=== PATIENT | female | born 1950 | race American Indian/Alaskan Native ===

== ENCOUNTER 2016-08-14 20:27 | Inpatient (IN) | payer MEDICARE ==
--- NOTE | 2016-08-14 21:11 | Emergency Department Report ---
ED General Adult HPI - General Chief complaint: High BP Stated complaint: HIGH BP Time Seen by Provider: 08/14/16 20:47 Source: patient, family, EMS Mode of arrival: Stretcher Limitations: Physical Limitation - History of Present Illness Initial comments: 66-year-old female presents to the emergency department via EMS for evaluation of multiple complaints. Patient has had a recent stroke and additional history is obtained from family at bedside. Per report, over the past 2 nights the patient has had left-sided neck pain and intermittent difficulty breathing. Family also reports the patient seems confused at times and appears to be seeing things that are not there. Patient was recently at an inpatient rehabilitation facility where she was able to walk with some assistance and feed herself. Since arriving home, family states the patient has been unable to do these things. There are no other complaints. -: Gradual, days(s) (2) Location: neck Radiation: non-radiation Severity scale (0 -10): 9 Quality: sharp Consistency: intermittent Improves with: none Worsens with: none Associated Symptoms: shortness of breath Treatments Prior to Arrival: none - Related Data Home Medications Medication Instructions Recorded Confirmed Last Taken Albuterol Sulfate [Ventolin HFA] 2 puff IH Q4H PRN 08/10/15 08/10/15 Unknown Atenolol/Chlorthalidone [Tenoretic 1 tab PO QDAY 08/10/15 08/10/15 Unknown 50-25] B Cmplx 4/Vit D3/C/FA/Zinc Ox 1 each PO DAILY 08/10/15 08/10/15 Unknown [Vital-D Rx Tablet] Carisoprodol [Soma] 350 mg PO HS 08/10/15 08/10/15 Unknown Cyanocobalamin/Folic Acid [B-12 1 mcg PO DAILY 08/10/15 08/10/15 Unknown 1,000 Mcg Sub Tablet] Ezetimibe [Zetia] 10 mg PO QDAY 08/10/15 08/10/15 Unknown Hydroxyzine HCl 25 mg PO DAILY 08/10/15 08/10/15 Unknown Ibuprofen [Motrin] 800 mg PO Q8HR PRN 08/10/15 08/10/15 Unknown Losartan [Cozaar] 50 mg PO QDAY 08/10/15 08/10/15 Unknown Myrbetriq 25 mg PO QHS 08/10/15 08/10/15 Unknown Potassium Chloride [Klor-Con] 20 meq PO DAILY 08/10/15 08/10/15 Unknown Ranitidine HCl [Zantac 150 MG TAB] 150 mg PO PRN 08/10/15 08/10/15 Unknown traMADol [Ultram] 50 mg PO Q4HR PRN 08/10/15 08/10/15 Unknown Allergies Allergy/AdvReac Type Severity Reaction Status Date / Time hydrocodone AdvReac Headache Verified 02/28/16 15:48 ED Review of Systems ROS: Stated complaint: HIGH BP Other details as noted in HPI Comment: All other systems reviewed and negative Respiratory: shortness of breath Musculoskeletal: as per HPI (neck pain) Psychiatric: visual hallucinations ED Past Medical Hx - Past Medical History Previous Medical History?: Yes Hx Hypertension: Yes (1993) Hx CVA: Yes Hx GERD: Yes Hx Arthritis: Yes - Surgical History Past Surgical History?: No - Family History Family history: no significant - Social History Smoking Status: Never Smoker Substance Use Type: None - Medications Home Medications: Home Medications Medication Instructions Recorded Confirmed Last Taken Type Albuterol Sulfate [Ventolin HFA] 2 puff IH Q4H PRN 08/10/15 08/10/15 Unknown History Atenolol/Chlorthalidone [Tenoretic 1 tab PO QDAY 08/10/15 08/10/15 Unknown History 50-25] B Cmplx 4/Vit D3/C/FA/Zinc Ox 1 each PO DAILY 08/10/15 08/10/15 Unknown History [Vital-D Rx Tablet] Carisoprodol [Soma] 350 mg PO HS 08/10/15 08/10/15 Unknown History Cyanocobalamin/Folic Acid [B-12 1 mcg PO DAILY 08/10/15 08/10/15 Unknown History 1,000 Mcg Sub Tablet] Ezetimibe [Zetia] 10 mg PO QDAY 08/10/15 08/10/15 Unknown History Hydroxyzine HCl 25 mg PO DAILY 08/10/15 08/10/15 Unknown History Ibuprofen [Motrin] 800 mg PO Q8HR PRN 08/10/15 08/10/15 Unknown History Losartan [Cozaar] 50 mg PO QDAY 08/10/15 08/10/15 Unknown History Myrbetriq 25 mg PO QHS 08/10/15 08/10/15 Unknown History Potassium Chloride [Klor-Con] 20 meq PO DAILY 08/10/15 08/10/15 Unknown History Ranitidine HCl [Zantac 150 MG TAB] 150 mg PO PRN 08/10/15 08/10/15 Unknown History traMADol [Ultram] 50 mg PO Q4HR PRN 08/10/15 08/10/15 Unknown History ED Physical Exam - General Limitations: Physical Limitation General appearance: alert, in no apparent distress - Head Head exam: Present: atraumatic, normocephalic - Eye Eye exam: Present: normal appearance, PERRL, EOMI - ENT ENT exam: Present: normal exam, normal orophraynx, mucous membranes moist - Neck Neck exam: Present: normal inspection, full ROM. Absent: tenderness - Respiratory Respiratory exam: Present: normal lung sounds bilaterally. Absent: respiratory distress - Cardiovascular Cardiovascular Exam: Present: regular rate, normal rhythm, normal heart sounds - GI/Abdominal GI/Abdominal exam: Present: soft, normal bowel sounds. Absent: distended, tenderness - Extremities Exam Extremities exam: Present: normal inspection, full ROM. Absent: tenderness - Neurological Exam Neurological exam: Present: alert, oriented X3, motor sensory deficit (left- sided hemiparesis) - Skin Skin exam: Present: warm, dry, intact ED Course Vital Signs 08/14/16 08/14/16 08/14/16 20:47 20:57 21:09 Temperature 98.8 F 98.8 F Pulse Rate 87 88 Respiratory 22 22 22 Rate Blood Pressure 188/104 Blood Pressure 188/104 [Right] O2 Sat by Pulse 97 97 97 Oximetry ED Medical Decision Making - Lab Data Result diagrams: 08/14/16 21:27 08/14/16 21:27 - Radiology Data Radiology results: image reviewed interpreted by me: Chest x-ray shows no acute abnormality. - Medical Decision Making Lab and imaging results reviewed and discussed with the patient. Potassium is being replaced orally. Patient's blood pressure is continue to be high in the emergency department. Giving IV labetalol. Patient is to be admitted by the hospitalist. - Differential Diagnosis UTI, electrolyte abnormality, muscle spasms Critical care attestation.: If time is entered above; I have spent that time in minutes in the direct care of this critically ill patient, excluding procedure time. ED Disposition Clinical Impression: Left-sided weakness Hypertension Qualifiers: Hypertension type: essential hypertension Qualified Code(s): I10 - Essential ( primary) hypertension Disposition: OP ADMITTED IP TO THIS HOSP Is pt being admited?: Yes Condition: Stable Instructions: Hypertension (ED) Time of Disposition: 23:48
[2016-08-14 21:44] LABS: Basophils % (Auto) 0.6 % (0.0-1.8); Eosinophils % (Auto) 3.5 % (0.0-4.3); Hematocrit 37.9 % (30.3-42.9); Hemoglobin 12.3 gm/dl (10.1-14.3); Mean Corpuscular HGB Conc 32 % (30-34); Mean Corpuscular Hemoglobin 29 pg (28-32); Mean Corpuscular Volume 90 fl (79-97); Platelet Count 332 K/mm3 (140-440); Red Cell Distribution Width 14.3 % (13.2-15.2); White Blood Count 9.6 K/mm3 (4.5-11.0)
[2016-08-14 22:11] LABS: Alanine Aminotransferase 12 units/L (7-56); Albumin 3.6 g/dL (3.9-5); Alkaline Phosphatase 113 units/L (35-129); BUN/Creatinine Ratio 21.66; Bilirubin,Total 0.2 mg/dL (0.1-1.2); Blood Urea Nitrogen 13 mg/dL (7-17); Calcium 9.6 mg/dL (8.4-10.2); Carbon Dioxide 24 mmol/L (22-30); Chloride 103.4 mmol/L (98-107); Glucose 96 mg/dL (65-100); Sodium 144 mmol/L (137-145); Total Protein 7.2 g/dL (6.3-8.2)
[2016-08-14 22:12] LABS: Anion Gap 20 mmol/L; Creatine Kinase 40 units/L (30-135)
[2016-08-14 22:14] LABS: Potassium 2.9 mmol/L (3.6-5.0)
[2016-08-14 23:17] LABS: Bacteria,Urine 1+ /HPF (Negative); Bilirubin,Urine NEG (Negative); Blood,Urine NEG (Negative); Ketones,Urine NEG (Negative); Leukocyte Esterase,Urine NEG (Negative); Mucus,Urine 3+ /HPF; Nitrite,Urine NEG (Negative); Protein,Urine <15 mg/dL mg/dL (Negative); Urobilinogen,Urine < 2.0 mg/dL (<2.0)
[2016-08-14] MEDS ORDERED: K-DUR PO ONE (23:35)
[2016-08-14] MEDS ORDERED: NORMODYNE IV ONE (23:40)
--- NOTE | 2016-08-15 01:48 | Admit Criteria Form ---
Admission Criteria Documentation: HYPERTENSION Clinical Indications for Admission to Inpatient Care ( Place "X" for any and all applicable criteria): Admission is indicated for ANY ONE of the following(1)(2)(3)(4): [ ]I. Hypertensive emergency, with evidence of acute and progressing target organ disease as indicated by ANY ONE of the following: [ ]a) Hypertensive encephalopathy (eg, confusion, altered mental status) [ ]b) Cerebral infarction [ ]c) Intracranial hemorrhage [ ]d) Myocardial ischemia or infarction [ ]e) Pulmonary edema [ ]f) Aortic dissection [ ]g) Seizure [ ]h) Acute renal insufficiency [ ]i) Papilledema [ ]j) Microangiopathic hemolytic anemia [ ]II. Adrenergic crisis (eg, severe hypertension due to pheochromocytoma crisis, cocaine or amphetamine intoxication, or clonidine withdrawal) [X ]III. Severe hypertension (SBP greater than 180 mmHg or DBP greater than 110 mmHg or greater than the 95th percentile for age, gender, and height in pediatric patients) that cannot be controlled (eg, to SBP less than 160 mmHg and DBP less than 100 mmHg in adults) by treatment with oral medication in emergency department or observation care Extended stay beyond goal length of stay may be needed for(11)(12)(13): [ ]a) Persistent hypertensive encephalopathy [ ]b) Continuation of pulmonary edema [ ]c) Recurring or persistent severe hypertension [ ]d) Target organ damage (eg, angina, stroke, aortic dissection) [ ]e) Associated renal insufficiency The original [employer] content created by [employer] has been revised. The portions of the content which have been revised are identified through the use of italic text or in bold, and [facility] has neither reviewed nor approved the modified material. All other unmodified content is copyright [employer]. Please see references footnoted in the original [employer] edition 2016 Admission Criteria Met: Yes
--- NOTE | 2016-08-15 04:01 | History and Physical Report ---
History of Present Illness Date of examination: 08/15/16 History of present illness: This 66-year-old woman with a history of hypertension, GERD, recent CVA with left hemiparesis who was discharged from rehabilitation 2-3 weeks ago was brought to the emergency room by family because of slurred speech and he also stated that she is hallucinating. The patient is unable to do her ADLs at home since discharge from the [facility] Patient denies chest pain, palpitation, shortness of breath, cough, abdominal pain, hematochezia, dysuria, frequency, fever chills, polydipsia polyuria, hot or cold intolerance, easy bruisability, or rash or bleeding from mucosal membrane, rhinorrhea, epistaxis, earache, tinnitus, blurry vision, eye discharge , anxiety, depression. Other review of systems negative PAST SURGICAL HISTORY: None SOCIAL HISTORY: Denies alcohol, tobacco, drugs FAMILY HISTORY: Hypertension Medications and Allergies Allergies Allergy/AdvReac Type Severity Reaction Status Date / Time hydrocodone AdvReac Headache Verified 02/28/16 15:48 Home Medications Medication Instructions Recorded Confirmed Last Taken Type Albuterol Sulfate [Ventolin HFA] 2 puff IH Q4H PRN 08/10/15 08/10/15 Unknown History B Cmplx 4/Vit D3/C/FA/Zinc Ox 1 each PO DAILY 08/10/15 08/10/15 Unknown History [Vital-D Rx Tablet] Cyanocobalamin/Folic Acid [B-12 1 mcg PO DAILY 08/10/15 08/10/15 Unknown History 1,000 Mcg Sub Tablet] Hydroxyzine HCl 25 mg PO DAILY 08/10/15 08/10/15 Unknown History Ibuprofen [Motrin 800 MG tab] 800 mg PO Q8HR PRN 08/10/15 08/10/15 Unknown History Losartan [Cozaar] 50 mg PO QDAY 08/10/15 08/10/15 Unknown History Myrbetriq 25 mg PO QHS 08/10/15 08/10/15 Unknown History Potassium Chloride [Klor-Con] 20 meq PO DAILY 08/10/15 08/10/15 Unknown History Ranitidine HCl [Zantac 150 MG TAB] 150 mg PO PRN 08/10/15 08/10/15 Unknown History traMADol [Ultram 50 MG tab] 50 mg PO Q4HR PRN 08/10/15 08/10/15 Unknown History Active Meds: Active Medications Atenolol (Tenormin) 50 mg PO QDAY [facility] Carisoprodol (Soma) 350 mg PO HS [facility] Chlorthalidone (Thalitone) 25 mg PO QDAY [facility] Cyanocobalamin (Vitamin B-12) 1,000 mcg PO QDAY [facility] Ezetimibe (Zetia) 10 mg PO QDAY [facility] Famotidine (Pepcid) 20 mg PO BID PRN PRN Reason: Dyspepsia Folic Acid (Folvite) 1 mg PO DAILY [facility] Losartan Potassium (Cozaar) 50 mg PO QDAY [facility] Exam - Physical Exam Narrative exam: Gen. appearance: Patient lying in bed, no apparent distress HEENT: Normocephalic, atraumatic, pupils equally round and reactive to light, extraocular movement intact, and no sclericterus,. No JVD or thyromegaly or nodule,neck supple, no carotid bruit ,mucous membranes moist, no exudate or erythema Heart: S1, S2, regular rate and rhythm Lungs: Clear to auscultation bilaterally, breathing comfortable Abdomen: Positive bowel sounds, nontender, nondistended, no organomegaly Extremity: No edema, cyanosis, clubbing Skin: No rash, nodules, warm, dry Neuro: Oriented 3, cranial nerves II-12 intact, speech is fluent, left hemiparesis - Constitutional Vitals: Temp Pulse Resp BP Pulse Ox 98.8 F 92 H 11 L 192/102 96 08/14/16 20:57 08/15/16 00:47 08/15/16 02:00 08/15/16 02:00 08/15/16 02:00 Results - Labs CBC & Chem 7: 08/14/16 21:27 08/14/16 21:27 Labs: Abnormal lab results 08/14/16 08/14/16 Range/Units 21:27 21:27 [place] % (Auto) 9.6 H (0.0-7.3) % [place] # 0.9 H (0.0-0.8) K/mm3 Potassium 2.9 L* (3.6-5.0) mmol/L Creatinine 0.6 L (0.7-1.2) mg/dL Albumin 3.6 L (3.9-5) g/dL - Imaging and Cardiology EKG: image reviewed Chest x-ray: image reviewed Assessment and Plan TIA Failure to thrive Hypertension GERD Admits medicine Obtain CT head, MRI head Will not repeat carotid, echo, these were done recently Start aspirin, statin, continue outpatient medications, start DVT prophylaxis IV hydralazine as needed for blood pressure control Consult physical, occupational therapy, do neuro check, swallow screen
--- NOTE | 2016-08-15 05:15 | Cat Scan Report ---
FINAL REPORT EXAM: CT HEAD/BRAIN WO CON HISTORY: slurred speech TECHNIQUE: Standard unenhanced CT of the head at 5.0 millimeter axial increments PRIORS: None. FINDINGS: The ventricular system is normal in size and configuration. There is moderate cerebral and cerebellar atrophy. Extensive remote lacunar infarct formation is present in both basal ganglia, the right caudate nucleus, and both thalami. Low-density small vessel ischemic changes in the periventricular white matter are also noted bilaterally. There is no evidence for mass lesion, mass effect, midline shift, acute intracranial hemorrhage, or acute ischemia/ infarction. Visualized paranasal sinuses are clear. IMPRESSION: Negative CT of the head. No acute intracranial process noted. Small vessel ischemic changes with remote lacunar infarcts and atrophy noted.
[2016-08-15 08:32] LABS: Creatine Kinase 34 units/L (30-135)
[2016-08-15] MEDS ORDERED: ZOFRAN IV PRN (09:00)
[2016-08-15] MEDS ORDERED: SODIUM CHLORIDE FLUSH SYRINGE 10 ML IV PRN (09:00)
[2016-08-15] MEDS ORDERED: MILK OF MAGNESIA PO PRN (09:00)
--- NOTE | 2016-08-15 09:37 | XRay Report ---
Single view chest: History altered mental status. Findings: Normal cardiomediastinal silhouette. Trachea is midline. No consolidation, pneumothorax or pleural effusion. Impression: No acute cardiopulmonary findings.
[2016-08-15] MEDS: VITAMIN B-12 PO SCH (09:54)
[2016-08-15] MEDS: ZETIA PO SCH (09:54)
[2016-08-15] MEDS: ASPIRIN PO SCH (09:54)
[2016-08-15] MEDS: THALITONE PO SCH (09:54)
[2016-08-15] MEDS: COZAAR PO SCH (09:54)
[2016-08-15] MEDS: LOVENOX SUB-Q SCH (09:54)
[2016-08-15] MEDS: TENORMIN PO SCH (09:54)
[2016-08-15] MEDS: FOLVITE PO SCH (09:54)
[2016-08-15] MEDS ORDERED: PEPCID PO PRN (10:00)
[2016-08-15] MEDS ORDERED: FOLIC ACID PO SCH (10:00)
[2016-08-15] MEDS ORDERED: DULCOLAX PR PRN (10:00)
[2016-08-15] MEDS ORDERED: CYANOCOBALAMIN PO SCH (10:00)
--- NOTE | 2016-08-15 12:13 | Magnetic Resonance Report ---
MRI OF THE BRAIN WITHOUT CONTRAST: HISTORY: CVA PROCEDURE: Multiplanar, multisequence MR imaging of the brain without IV contrast was performed. FINDINGS: Moderate diffuse volume loss and chronic white matter changes are identified. 1.8 cm chronic infarct in the right lateral thalamus is noted. 1.4 cm chronic infarct in the right montano radiata is noted. No large chronic infarct. No evidence for acute ischemia, hemorrhage or mass. No extra-axial fluid collection. The midline structures are central. The basal cisterns are patent. Normal ventricular size. The orbital cavities and sella turcica demonstrate no abnormality. The visualized paranasal sinuses and mastoid air cells are well aerated. IMPRESSION: No acute intracranial process. Volume loss. Chronic white matter changes. Chronic focal infarcts in the right basal ganglia and right montano radiata.
[2016-08-15 14:14] LABS: Creatine Kinase 33 units/L (30-135)
[2016-08-15 14:18] LABS: Creatine Kinase MB < 1.0 ng/mL (0.0-4.0)
[2016-08-15] MEDS: SOMA PO SCH (22:17)
[2016-08-15] MEDS: ZOCOR PO SCH (22:17)
[2016-08-16] MEDS ORDERED: PNEUMOVAX 23 IM ONE (12:00)
--- NOTE | 2016-08-16 16:10 | Progress Note ---
Assessment and Plan - Patient Problems (1) CVA (cerebral vascular accident) Current Visit: Yes Status: Chronic Qualifiers: CVA mechanism: C Precerebral and cerebral artery: P Laterality of affected vessel: right Plan to address problem: Stroke protocol, antiplatelet therapy, supportive care. case management consulted for d/c planning /placement (2) Left hemiparesis Current Visit: Yes Status: Acute (3) Hypertension Current Visit: Yes Status: Acute Qualifiers: Hypertension type: essential hypertension Qualified Code(s): I10 - Essential (primary) hypertension Plan to address problem: monitor bp q shift, continue current therapy (4) Debility Current Visit: Yes Status: Acute Plan to address problem: PT consulted, (5) DVT prophylaxis Current Visit: Yes Status: Acute History Interval history: Pt resting in bed, No reported nursing events. Pt denies pain Hospitalist Physical - Constitutional Vitals: Temp Pulse Resp BP Pulse Ox 98.4 F 73 19 186/85 96 08/16/16 03:51 08/16/16 03:51 08/16/16 03:51 08/16/16 03:51 08/16/16 03:51 General appearance: Present: no acute distress - EENT Eyes: Present: PERRL ENT: hearing intact - Neck Neck: Present: supple - Respiratory Respiratory effort: normal Respiratory: bilateral: CTA - Cardiovascular Rhythm: regular Heart Sounds: Present: S1 & S2 - Extremities Extremities: no ischemia - Abdominal General gastrointestinal: soft, non-tender, non-distended - Integumentary Integumentary: Present: clear, dry - Psychiatric Psychiatric: appropriate mood/affect, cooperative - Neurologic Neurologic: no CNII-XII intact, focal deficits, no moves all extremities, no gait normal Results - Labs CBC & Chem 7: 08/14/16 21:27 08/14/16 21:27 Labs: Laboratory Last Values WBC 9.6 K/mm3 (4.5-11.0) 08/14/16 21:27 RBC 4.20 M/mm3 (3.65-5.03) 08/14/16 21:27 Hgb 12.3 gm/dl (10.1-14.3) 08/14/16 21:27 Hct 37.9 % (30.3-42.9) 08/14/16 21:27 MCV 90 fl (79-97) 08/14/16 21:27 MCH 29 pg (28-32) 08/14/16 21:27 MCHC 32 % (30-34) 08/14/16 21:27 RDW 14.3 % (13.2-15.2) 08/14/16 21:27 Plt Count 332 K/mm3 (140-440) 08/14/16 21:27 Lymph % (Auto) 25.5 % (13.4-35.0) 08/14/16 21:27 [place] % (Auto) 9.6 % (0.0-7.3) H 08/14/16 21:27 Eos % (Auto) 3.5 % (0.0-4.3) 08/14/16: Baso % (Auto) 0.6 % (0.0-1.8) 08/14/16 21: Lymph # 2.4 K/mm3 (1.2-5.4) 08/14/16 21: [place] # 0.9 K/mm3 (0.0-0.8) H 08/14/16 21: Eos # 0.3 K/mm3 (0.0-0.4) 08/14/16 21: Baso # 0.1 K/mm3 (0.0-0.1) 08/14/16 21: Seg Neutrophils % 60.8 % (40.0-70.0) 08/14/16 21: Seg Neutrophils # 5.8 K/mm3 (1.8-7.7) 08/14/16 21:27 Sodium 144 mmol/L (137-145) 08/14/16 21:27 Potassium 2.9 mmol/L (3.6-5.0) L* 08/14/16 21: Chloride 103.4 mmol/L (98-107) 08/14/16 21: Carbon Dioxide 24 mmol/L (22-30) 08/14/16 21: Anion Gap 20 mmol/L 08/14/16 21:27 BUN 13 mg/dL (7-17) 08/14/16 21:27 Creatinine 0.6 mg/dL (0.7-1.2) L 08/14/16 21:27 Estimated GFR > 60 ml/min 08/14/16 21:27 BUN/Creatinine Ratio 21.66 % 08/14/16 21:27 Glucose 96 mg/dL (65-100) 08/14/16 21:27 Lactic Acid 1.0 mmol/L (0.7-2.0) 08/14/16 21:27 Calcium 9.6 mg/dL (8.4-10.2) 08/14/16 21:27 Total Bilirubin 0.2 mg/dL (0.1-1.2) 08/14/16 21:27 AST 15 units/L (5-40) 08/14/16 21:27 ALT 12 units/L (7-56) 08/14/16 21:27 Alkaline Phosphatase 113 units/L (35-129) 08/14/16 21:27 Total Creatine Kinase 33 units/L (30-135) 08/15/16 13:27 CK-MB (CK-2) < 1.0 ng/mL (0.0-4.0) 08/15/16 13:27 CK-MB (CK-2) Rel Index 3.0 (0-4) 08/15/16 13:27 Troponin T < 0.010 ng/mL (0.00-0.029) 08/15/16 13:27 Total Protein 7.2 g/dL (6.3-8.2) 08/14/16 21:27 Albumin 3.6 g/dL (3.9-5) L 08/14/16 21: Albumin/Globulin Ratio 1.0 % 08/14/16 21:27 Triglycerides 73 mg/dL (2-149) 08/16/16 04:00 Cholesterol 212 mg/dL (50-199) H 08/16/16 04:00 LDL Cholesterol Direct 157 mg/dL (50-130) H 08/16/16 04:00 HDL Cholesterol 41 mg/dL (40-59) 08/16/16 04:00 Cholesterol/HDL Ratio 5.17 % 08/16/16 04:00 Urine Color Yellow (Yellow) 08/14/16 22:57 Urine Turbidity Cloudy (Clear) 08/14/16 22:57 Urine pH 6.0 (5.0-7.0) 08/14/16 22:57 Ur Specific [place] 1.016 (1.003-1.030) 08/14/16 22:57 Urine Protein <15 mg/dl mg/dL (Negative) 08/14/16 22:57 Urine Glucose (UA) Neg mg/dL (Negative) 08/14/16 22:57 Urine Ketones Neg mg/dL (Negative) 08/14/16 22:57 Urine Blood Neg (Negative) 08/14/16 22:57 Urine Nitrite Neg (Negative) 08/14/16 22:57 Urine Bilirubin Neg (Negative) 08/14/16 22:57 Urine Urobilinogen < 2.0 mg/dL (<2.0) 08/14/16 22:57 Ur Leukocyte Esterase Neg (Negative) 08/14/16 22:57 Urine WBC (Auto) 1.0 /HPF (0.0-6.0) 08/14/16 22:57 Urine RBC (Auto) 21.0 /HPF (0.0-6.0) 08/14/16 22:57 U Epithel Cells (Auto) 2.0 /HPF (0-13.0) 08/14/16 22:57 Urine Bacteria (Auto) 1+ /HPF (Negative) 08/14/16 22:57 Urine Mucus 3+ /HPF 08/14/16 22:57
[2016-08-16] MEDS: SOMA PO SCH (22:03)
[2016-08-16] MEDS: APRESOLINE IV PRN (22:03)
[2016-08-16] MEDS: ZOCOR PO SCH (22:03)
[2016-08-16] MEDS: TYLENOL PO PRN (22:07)
[2016-08-17] MEDS: TYLENOL PO PRN ×2 (06:57→09:13)
[2016-08-17] MEDS: VITAMIN B-12 PO SCH ×2 (07:52→09:13)
[2016-08-17] MEDS: ASPIRIN PO SCH ×2 (07:52→09:13)
[2016-08-17] MEDS: FOLVITE PO SCH ×2 (07:52→09:12)
[2016-08-17] MEDS: THALITONE PO SCH ×2 (07:52→09:13)
[2016-08-17] MEDS: TENORMIN PO SCH ×2 (07:52→09:12)
[2016-08-17] MEDS: COZAAR PO SCH ×2 (07:52→09:13)
[2016-08-17] MEDS: LOVENOX SUB-Q SCH ×2 (07:52→09:12)
[2016-08-17] MEDS: ZETIA PO SCH ×2 (07:53→09:13)
[2016-08-17] MEDS: PLAVIX PO SCH (09:12)
[2016-08-17] MEDS: SOMA PO SCH (21:57)
[2016-08-17] MEDS: ZOCOR PO SCH (21:57)
--- NOTE | 2016-08-18 00:07 | Progress Note ---
Assessment and Plan - Patient Problems (1) CVA (cerebral vascular accident) Current Visit: Yes Status: Chronic Qualifiers: CVA mechanism: C Precerebral and cerebral artery: P Laterality of affected vessel: right Plan to address problem: Stroke protocol, antiplatelet therapy, supportive care. case management consulted for d/c planning /placement (2) Left hemiparesis Current Visit: Yes Status: Acute (3) Hypertension Current Visit: Yes Status: Acute Qualifiers: Hypertension type: essential hypertension Qualified Code(s): I10 - Essential (primary) hypertension Plan to address problem: monitor bp q shift, continue current therapy (4) Debility Current Visit: Yes Status: Acute Plan to address problem: PT consulted, (5) DVT prophylaxis Current Visit: Yes Status: Acute History Interval history: Pt resting in bed, No reported nursing events. Pt denies pain. Case management consulted for D/C planning. Hospitalist Physical - Constitutional Vitals: Temp Pulse Resp BP Pulse Ox 98.4 F 67 22 168/74 98 08/17/16 20:35 08/17/16 20:35 08/17/16 20:35 08/17/16 20:35 08/17/16 20:35 General appearance: Present: no acute distress - EENT Eyes: Present: PERRL, EOM intact - Neck Neck: Present: supple - Respiratory Respiratory: bilateral: diminished - Cardiovascular Rhythm: regular Heart Sounds: Present: S1 & S2 - Extremities Extremities: no ischemia Peripheral Pulses: within normal limits - Abdominal General gastrointestinal: soft, non-tender, non-distended - Integumentary Integumentary: Present: clear, dry - Neurologic Neurologic: focal deficits, no gait normal Results - Labs CBC & Chem 7: 08/14/16 21:27 08/14/16 21:27 Labs: Laboratory Last Values WBC 9.6 K/mm3 (4.5-11.0) 08/14/16 21:27 RBC 4.20 M/mm3 (3.65-5.03) 08/14/16 21:27 Hgb 12.3 gm/dl (10.1-14.3) 08/14/16 21:27 Hct 37.9 % (30.3-42.9) 08/14/16 21:27 MCV 90 fl (79-97) 08/14/16 21:27 MCH 29 pg (28-32) 08/14/16 21:27 MCHC 32 % (30-34) 08/14/16 21:27 RDW 14.3 % (13.2-15.2) 08/14/16 21:27 Plt Count 332 K/mm3 (140-440) 08/14/16 21:27 Lymph % (Auto) 25.5 % (13.4-35.0) 08/14/16 21:27 [place] % (Auto) 9.6 % (0.0-7.3) H 08/14/16 21:27 Eos % (Auto) 3.5 % (0.0-4.3) 08/14/16 21: Baso % (Auto) 0.6 % (0.0-1.8) 08/14/16 21: Lymph # 2.4 K/mm3 (1.2-5.4) 08/14/16 21: [place] # 0.9 K/mm3 (0.0-0.8) H 08/14/16 21: Eos # 0.3 K/mm3 (0.0-0.4) 08/14/16 21: Baso # 0.1 K/mm3 (0.0-0.1) 08/14/16 21: Seg Neutrophils % 60.8 % (40.0-70.0) 08/14/16 21: Seg Neutrophils # 5.8 K/mm3 (1.8-7.7) 08/14/16 21:27 Sodium 144 mmol/L (137-145) 08/14/16 21:27 Potassium 2.9 mmol/L (3.6-5.0) L* 08/14/16 21:27 Chloride 103.4 mmol/L (98-107) 08/14/16 21:27 Carbon Dioxide 24 mmol/L (22-30) 08/14/16 21:27 Anion Gap 20 mmol/L 08/14/16 21:27 BUN 13 mg/dL (7-17) 08/14/16 21:27 Creatinine 0.6 mg/dL (0.7-1.2) L 08/14/16 21:27 Estimated GFR > 60 ml/min 08/14/16 21:27 BUN/Creatinine Ratio 21.66 % 08/14/16 21:27 Glucose 96 mg/dL (65-100) 08/14/16 21:27 POC Glucose 114 (70-105) H 08/17/16 22:31 Lactic Acid 1.0 mmol/L (0.7-2.0) 08/14/16 21:27 Calcium 9.6 mg/dL (8.4-10.2) 08/14/16 21:27 Total Bilirubin 0.2 mg/dL (0.1-1.2) 08/14/16 21:27 AST 15 units/L (5-40) 08/14/16 21:27 ALT 12 units/L (7-56) 08/14/16 21:27 Alkaline Phosphatase 113 units/L (35-129) 08/14/16 21:27 Total Creatine Kinase 33 units/L (30-135) 08/15/16 13:27 CK-MB (CK-2) < 1.0 ng/mL (0.0-4.0) 08/15/16 13:27 CK-MB (CK-2) Rel Index 3.0 (0-4) 08/15/16 13:27 Troponin T < 0.010 ng/mL (0.00-0.029) 08/15/16 13:27 Total Protein 7.2 g/dL (6.3-8.2) 08/14/16 21:27 Albumin 3.6 g/dL (3.9-5) L 08/14/16 21:27 Albumin/Globulin Ratio 1.0 % 08/14/16 21:27 Triglycerides 73 mg/dL (2-149) 08/16/16 04:00 Cholesterol 212 mg/dL (50-199) H 08/16/16 04:00 LDL Cholesterol Direct 157 mg/dL (50-130) H 08/16/16 04:00 HDL Cholesterol 41 mg/dL (40-59) 08/16/16 04:00 Cholesterol/HDL Ratio 5.17 % 08/16/16 04:00 Urine Color Yellow (Yellow) 08/14/16 22:57 Urine Turbidity Cloudy (Clear) 08/14/16 22:57 Urine pH 6.0 (5.0-7.0) 08/14/16 22:57 Ur Specific [place] 1.016 (1.003-1.030) 08/14/16 22:57 Urine Protein <15 mg/dl mg/dL (Negative) 08/14/16 22:57 Urine Glucose (UA) Neg mg/dL (Negative) 08/14/16 22:57 Urine Ketones Neg mg/dL (Negative) 08/14/16 22:57 Urine Blood Neg (Negative) 08/14/16 22:57 Urine Nitrite Neg (Negative) 08/14/16 22:57 Urine Bilirubin Neg (Negative) 08/14/16 22:57 Urine Urobilinogen < 2.0 mg/dL (<2.0) 08/14/16 22:57 Ur Leukocyte Esterase Neg (Negative) 08/14/16 22:57 Urine WBC (Auto) 1.0 /HPF (0.0-6.0) 08/14/16 22:57 Urine RBC (Auto) 21.0 /HPF (0.0-6.0) 08/14/16 22:57 U Epithel Cells (Auto) 2.0 /HPF (0-13.0) 08/14/16 22:57 Urine Bacteria (Auto) 1+ /HPF (Negative) 08/14/16 22:57 Urine Mucus 3+ /HPF 08/14/16 22:57
[2016-08-18] MEDS: COZAAR PO SCH (09:39)
[2016-08-18] MEDS: FOLVITE PO SCH (09:40)
[2016-08-18] MEDS: ZETIA PO SCH (09:40)
[2016-08-18] MEDS: ASPIRIN PO SCH (09:40)
[2016-08-18] MEDS: TENORMIN PO SCH (09:40)
[2016-08-18] MEDS: LOVENOX SUB-Q SCH (09:40)
[2016-08-18] MEDS: THALITONE PO SCH (09:40)
[2016-08-18] MEDS: PLAVIX PO SCH (09:40)
[2016-08-18] MEDS: VITAMIN B-12 PO SCH (09:40)
--- NOTE | 2016-08-18 10:14 | Discharge Summary ---
Providers - Providers Date of Admission: 08/15/16 03:46 Attending physician: DAWIT ROSENBAUM Primary care physician: THOMAS VIZCAINO MD Hospitalization Condition: Stable Disposition: STILL A PATIENT - Discharge Diagnoses (1) CVA (cerebral vascular accident) Status: Chronic Qualifiers: CVA mechanism: C Precerebral and cerebral artery: P Laterality of affected vessel: right (2) Left hemiparesis Status: Acute (3) Hypertension Status: Acute Qualifiers: Hypertension type: essential hypertension Qualified Code(s): I10 - Essential (primary) hypertension (4) Debility Status: Acute (5) DVT prophylaxis Status: Acute Exam - Constitutional Vitals: Temp Pulse Resp BP Pulse Ox 98.4 F 92 H 20 183/99 97 08/18/16 07:35 08/18/16 07:35 08/18/16 07:35 08/18/16 07:35 08/18/16 07:35 Plan Follow up with: THOMAS VIZCAINO MD [Primary Care Provider] - 3-5 Days
[2016-08-18] MEDS: ZOCOR PO SCH (21:36)
[2016-08-18] MEDS: SOMA PO SCH (21:36)
[2016-08-19] MEDS: TYLENOL PO PRN ×3 (01:05→17:39)
[2016-08-19] MEDS: ZETIA PO SCH (09:59)
[2016-08-19] MEDS: PLAVIX PO SCH (09:59)
[2016-08-19] MEDS: THALITONE PO SCH (09:59)
[2016-08-19] MEDS: VITAMIN B-12 PO SCH (10:00)
[2016-08-19] MEDS: ASPIRIN PO SCH (10:00)
[2016-08-19] MEDS: LOVENOX SUB-Q SCH (10:00)
[2016-08-19] MEDS: COZAAR PO SCH (10:05)
[2016-08-19] MEDS: TENORMIN PO SCH (10:06)
[2016-08-19] MEDS: FOLVITE PO SCH (10:06)
--- NOTE | 2016-08-19 10:25 | Progress Note ---
Assessment and Plan - Patient Problems (1) CVA (cerebral vascular accident) Current Visit: Yes Status: Chronic Qualifiers: CVA mechanism: C Precerebral and cerebral artery: P Laterality of affected vessel: right Plan to address problem: Stroke protocol, antiplatelet therapy, supportive care. case management consulted for d/c planning /placement (2) Left hemiparesis Current Visit: Yes Status: Acute (3) Hypertension Current Visit: Yes Status: Acute Qualifiers: Hypertension type: essential hypertension Qualified Code(s): I10 - Essential (primary) hypertension Plan to address problem: monitor bp q shift, continue current therapy (4) Debility Current Visit: Yes Status: Acute Plan to address problem: PT consulted, (5) DVT prophylaxis Current Visit: Yes Status: Acute History Interval history: Pt resting in bed, No reported nursing events. Pt denies pain. Case management consulted for D/C planning. Hospitalist Physical - Constitutional Vitals: Temp Pulse Resp BP Pulse Ox 98.1 F 82 18 151/86 94 08/19/16 09:15 08/19/16 09:15 08/19/16 09:15 08/19/16 10:05 08/19/16 09:15 General appearance: Present: no acute distress - EENT Eyes: Present: PERRL - Neck Neck: Present: supple - Respiratory Respiratory: bilateral: diminished - Cardiovascular Rhythm: regular Heart Sounds: Present: S1 & S2 - Extremities Extremities: no ischemia Peripheral Pulses: within normal limits - Abdominal General gastrointestinal: soft, non-tender, non-distended - Integumentary Integumentary: Present: clear, warm, dry - Psychiatric Psychiatric: cooperative - Neurologic Neurologic: focal deficits, no gait normal Results - Labs CBC & Chem 7: 08/14/16 21:27 08/14/16 21:27 Labs: Laboratory Last Values WBC 9.6 K/mm3 (4.5-11.0) 08/14/16 21: RBC 4.20 M/mm3 (3.65-5.03) 08/14/16 21:27 Hgb 12.3 gm/dl (10.1-14.3) 08/14/16 21:27 Hct 37.9 % (30.3-42.9) 08/14/16 21:27 MCV 90 fl (79-97) 08/14/16 21:27 MCH 29 pg (28-32) 08/14/16 21:27 MCHC 32 % (30-34) 08/14/16 21:27 RDW 14.3 % (13.2-15.2) 08/14/16 21: Plt Count 332 K/mm3 (140-440) 08/14/16 21:27 Lymph % (Auto) 25.5 % (13.4-35.0) 08/14/16 21:27 [place] % (Auto) 9.6 % (0.0-7.3) H 08/14/16 21:27 Eos % (Auto) 3.5 % (0.0-4.3) 08/14/16 21: Baso % (Auto) 0.6 % (0.0-1.8) 08/14/16 21: Lymph # 2.4 K/mm3 (1.2-5.4) 08/14/16 21: [place] # 0.9 K/mm3 (0.0-0.8) H 08/14/16 21: Eos # 0.3 K/mm3 (0.0-0.4) 08/14/16 21: Baso # 0.1 K/mm3 (0.0-0.1) 08/14/16 21: Seg Neutrophils % 60.8 % (40.0-70.0) 08/14/16 21: Seg Neutrophils # 5.8 K/mm3 (1.8-7.7) 08/14/16 21:27 Sodium 144 mmol/L (137-145) 08/14/16 21:27 Potassium 2.9 mmol/L (3.6-5.0) L* 08/14/16 21:27 Chloride 103.4 mmol/L (98-107) 08/14/16 21: Carbon Dioxide 24 mmol/L (22-30) 08/14/16 21:27 Anion Gap 20 mmol/L 08/14/16 21:27 BUN 13 mg/dL (7-17) 08/14/16 21:27 Creatinine 0.6 mg/dL (0.7-1.2) L 08/14/16 21:27 Estimated GFR > 60 ml/min 08/14/16 21:27 BUN/Creatinine Ratio 21.66 % 08/14/16 21:27 Glucose 96 mg/dL (65-100) 08/14/16 21:27 POC Glucose 154 (70-105) H 08/19/16 09:22 Lactic Acid 1.0 mmol/L (0.7-2.0) 08/14/16 21:27 Calcium 9.6 mg/dL (8.4-10.2) 08/14/16 21:27 Total Bilirubin 0.2 mg/dL (0.1-1.2) 08/14/16 21:27 AST 15 units/L (5-40) 08/14/16 21:27 ALT 12 units/L (7-56) 08/14/16 21:27 Alkaline Phosphatase 113 units/L (35-129) 08/14/16 21: Total Creatine Kinase 33 units/L (30-135) 08/15/16 13:27 CK-MB (CK-2) < 1.0 ng/mL (0.0-4.0) 08/15/16 13:27 CK-MB (CK-2) Rel Index 3.0 (0-4) 08/15/16 13:27 Troponin T < 0.010 ng/mL (0.00-0.029) 08/15/16 13:27 Total Protein 7.2 g/dL (6.3-8.2) 08/14/16 21:27 Albumin 3.6 g/dL (3.9-5) L 08/14/16 21:27 Albumin/Globulin Ratio 1.0 % 08/14/16 21:27 Triglycerides 73 mg/dL (2-149) 08/16/16 04:00 Cholesterol 212 mg/dL (50-199) H 08/16/16 04:00 LDL Cholesterol Direct 157 mg/dL (50-130) H 08/16/16 04:00 HDL Cholesterol 41 mg/dL (40-59) 08/16/16 04:00 Cholesterol/HDL Ratio 5.17 % 08/16/16 04:00 Urine Color Yellow (Yellow) 08/14/16 22:57 Urine Turbidity Cloudy (Clear) 08/14/16 22:57 Urine pH 6.0 (5.0-7.0) 08/14/16 22:57 Ur Specific [place] 1.016 (1.003-1.030) 08/14/16 22:57 Urine Protein <15 mg/dl mg/dL (Negative) 08/14/16 22:57 Urine Glucose (UA) Neg mg/dL (Negative) 08/14/16 22:57 Urine Ketones Neg mg/dL (Negative) 08/14/16 22:57 Urine Blood Neg (Negative) 08/14/16 22:57 Urine Nitrite Neg (Negative) 08/14/16 22:57 Urine Bilirubin Neg (Negative) 08/14/16 22:57 Urine Urobilinogen < 2.0 mg/dL (<2.0) 08/14/16 22:57 Ur Leukocyte Esterase Neg (Negative) 08/14/16 22:57 Urine WBC (Auto) 1.0 /HPF (0.0-6.0) 08/14/16 22:57 Urine RBC (Auto) 21.0 /HPF (0.0-6.0) 08/14/16 22:57 U Epithel Cells (Auto) 2.0 /HPF (0-13.0) 08/14/16 22:57 Urine Bacteria (Auto) 1+ /HPF (Negative) 08/14/16 22:57 Urine Mucus 3+ /HPF 08/14/16 22:57
[2016-08-19] MEDS: SOMA PO SCH (21:52)
[2016-08-19] MEDS: ZOCOR PO SCH (21:52)
--- NOTE | 2016-08-20 07:34 | Progress Note ---
Assessment and Plan - Patient Problems (1) CVA (cerebral vascular accident) Current Visit: Yes Status: Chronic Qualifiers: CVA mechanism: C Precerebral and cerebral artery: P Laterality of affected vessel: right Plan to address problem: Stroke protocol, antiplatelet therapy, supportive care. case management consulted for d/c planning /placement (2) Left hemiparesis Current Visit: Yes Status: Acute (3) Hypertension Current Visit: Yes Status: Acute Qualifiers: Hypertension type: essential hypertension Qualified Code(s): I10 - Essential (primary) hypertension Plan to address problem: monitor bp q shift, continue current therapy (4) Debility Current Visit: Yes Status: Acute Plan to address problem: PT consulted, (5) DVT prophylaxis Current Visit: Yes Status: Acute History Interval history: Pt resting in bed, No reported nursing events. Pt denies pain. Case management consulted for D/C planning. Pt medically optimized, discharge pending bed availability Hospitalist Physical - Constitutional Vitals: Temp Pulse Resp BP Pulse Ox 97.6 F 78 20 141/76 98 08/20/16 05:18 08/20/16 05:18 08/20/16 05:18 08/20/16 05:18 08/20/16 05:18 General appearance: Present: no acute distress - EENT Eyes: Present: PERRL ENT: hearing intact - Neck Neck: Present: supple - Respiratory Respiratory: bilateral: diminished - Cardiovascular Rhythm: regular Heart Sounds: Present: S1 & S2 - Extremities Extremities: no ischemia Peripheral Pulses: within normal limits - Abdominal General gastrointestinal: soft, non-tender, non-distended - Integumentary Integumentary: Present: clear, dry - Psychiatric Psychiatric: appropriate mood/affect, cooperative - Neurologic Neurologic: CNII-XII intact, focal deficits, no moves all extremities, no gait normal Results - Labs CBC & Chem 7: 08/14/16 21:27 08/14/16 21:27 Labs: Laboratory Last Values WBC 9.6 K/mm3 (4.5-11.0) 08/14/16 21:27 RBC 4.20 M/mm3 (3.65-5.03) 08/14/16 21:27 Hgb 12.3 gm/dl (10.1-14.3) 08/14/16 21:27 Hct 37.9 % (30.3-42.9) 08/14/16 21: MCV 90 fl (79-97) 08/14/16 21: MCH 29 pg (28-32) 08/14/16 21: MCHC 32 % (30-34) 08/14/16 21:27 RDW 14.3 % (13.2-15.2) 08/14/16 21:27 Plt Count 332 K/mm3 (140-440) 08/14/16 21: Lymph % (Auto) 25.5 % (13.4-35.0) 08/14/16 21:27 [place] % (Auto) 9.6 % (0.0-7.3) H 08/14/16 21: Eos % (Auto) 3.5 % (0.0-4.3) 08/14/16: Baso % (Auto) 0.6 % (0.0-1.8) 08/14/16 21: Lymph # 2.4 K/mm3 (1.2-5.4) 08/14/16 21: [place] # 0.9 K/mm3 (0.0-0.8) H 08/14/16 21: Eos # 0.3 K/mm3 (0.0-0.4) 08/14/16 21: Baso # 0.1 K/mm3 (0.0-0.1) 08/14/16 21: Seg Neutrophils % 60.8 % (40.0-70.0) 08/14/16 21: Seg Neutrophils # 5.8 K/mm3 (1.8-7.7) 08/14/16 21: Sodium 144 mmol/L (137-145) 08/14/16 21: Potassium 2.9 mmol/L (3.6-5.0) L* 08/14/16 21: Chloride 103.4 mmol/L (98-107) 08/14/16 21: Carbon Dioxide 24 mmol/L (22-30) 08/14/16 21:27 Anion Gap 20 mmol/L 08/14/16 21:27 BUN 13 mg/dL (7-17) 08/14/16 21: Creatinine 0.6 mg/dL (0.7-1.2) L 08/14/16 21: Estimated GFR > 60 ml/min 08/14/16 21:27 BUN/Creatinine Ratio 21.66 % 08/14/16 21:27 Glucose 96 mg/dL (65-100) 08/14/16 21:27 POC Glucose 97 (70-105) 08/19/16 21:35 Lactic Acid 1.0 mmol/L (0.7-2.0) 08/14/16 21:27 Calcium 9.6 mg/dL (8.4-10.2) 08/14/16 21:27 Total Bilirubin 0.2 mg/dL (0.1-1.2) 08/14/16 21:27 AST 15 units/L (5-40) 08/14/16 21:27 ALT 12 units/L (7-56) 08/14/16 21:27 Alkaline Phosphatase 113 units/L (35-129) 08/14/16 21:27 Total Creatine Kinase 33 units/L (30-135) 08/15/16 13:27 CK-MB (CK-2) < 1.0 ng/mL (0.0-4.0) 08/15/16 13:27 CK-MB (CK-2) Rel Index 3.0 (0-4) 08/15/16 13:27 Troponin T < 0.010 ng/mL (0.00-0.029) 08/15/16 13:27 Total Protein 7.2 g/dL (6.3-8.2) 08/14/16 21:27 Albumin 3.6 g/dL (3.9-5) L 08/14/16 21:27 Albumin/Globulin Ratio 1.0 % 08/14/16 21:27 Triglycerides 73 mg/dL (2-149) 08/16/16 04:00 Cholesterol 212 mg/dL (50-199) H 08/16/16 04:00 LDL Cholesterol Direct 157 mg/dL (50-130) H 08/16/16 04:00 HDL Cholesterol 41 mg/dL (40-59) 08/16/16 04:00 Cholesterol/HDL Ratio 5.17 % 08/16/16 04:00 Urine Color Yellow (Yellow) 08/14/16 22:57 Urine Turbidity Cloudy (Clear) 08/14/16 22:57 Urine pH 6.0 (5.0-7.0) 08/14/16 22:57 Ur Specific [place] 1.016 (1.003-1.030) 08/14/16 22:57 Urine Protein <15 mg/dl mg/dL (Negative) 08/14/16 22:57 Urine Glucose (UA) Neg mg/dL (Negative) 08/14/16 22:57 Urine Ketones Neg mg/dL (Negative) 08/14/16 22:57 Urine Blood Neg (Negative) 08/14/16 22:57 Urine Nitrite Neg (Negative) 08/14/16 22:57 Urine Bilirubin Neg (Negative) 08/14/16 22:57 Urine Urobilinogen < 2.0 mg/dL (<2.0) 08/14/16 22:57 Ur Leukocyte Esterase Neg (Negative) 08/14/16 22:57 Urine WBC (Auto) 1.0 /HPF (0.0-6.0) 08/14/16 22:57 Urine RBC (Auto) 21.0 /HPF (0.0-6.0) 08/14/16 22:57 U Epithel Cells (Auto) 2.0 /HPF (0-13.0) 08/14/16 22:57 Urine Bacteria (Auto) 1+ /HPF (Negative) 08/14/16 22:57 Urine Mucus 3+ /HPF 08/14/16 22:57
[2016-08-20] MEDS: ASPIRIN PO SCH (11:57)
[2016-08-20] MEDS: COZAAR PO SCH (11:57)
[2016-08-20] MEDS: VITAMIN B-12 PO SCH (11:58)
[2016-08-20] MEDS: PLAVIX PO SCH (11:58)
[2016-08-20] MEDS: ZETIA PO SCH (11:59)
[2016-08-20] MEDS: FOLVITE PO SCH (11:59)
[2016-08-20] MEDS: TENORMIN PO SCH (11:59)
[2016-08-20] MEDS: LOVENOX SUB-Q SCH (12:00)
[2016-08-20] MEDS: SOMA PO SCH (23:28)
[2016-08-20] MEDS: ZOCOR PO SCH (23:33)
[2016-08-21] MEDS: LOVENOX SUB-Q SCH (10:57)
[2016-08-21] MEDS: COZAAR PO SCH (10:57)
[2016-08-21] MEDS: ASPIRIN PO SCH (10:58)
[2016-08-21] MEDS: PLAVIX PO SCH (10:58)
[2016-08-21] MEDS: VITAMIN B-12 PO SCH (10:58)
[2016-08-21] MEDS: FOLVITE PO SCH (10:59)
[2016-08-21] MEDS: ZETIA PO SCH (10:59)
[2016-08-21] MEDS: TENORMIN PO SCH (10:59)
[2016-08-21] MEDS: THALITONE PO SCH ×2 (11:24→11:25)
--- NOTE | 2016-08-21 16:41 | Progress Note ---
Assessment and Plan - Patient Problems (1) CVA (cerebral vascular accident) Current Visit: Yes Status: Chronic Qualifiers: CVA mechanism: C Precerebral and cerebral artery: P Laterality of affected vessel: right Plan to address problem: Stroke protocol, antiplatelet therapy, supportive care. case management consulted for d/c planning /placement (2) Left hemiparesis Current Visit: Yes Status: Acute (3) Hypertension Current Visit: Yes Status: Acute Qualifiers: Hypertension type: essential hypertension Qualified Code(s): I10 - Essential (primary) hypertension Plan to address problem: monitor bp q shift, continue current therapy (4) Debility Current Visit: Yes Status: Acute Plan to address problem: PT consulted, (5) DVT prophylaxis Current Visit: Yes Status: Acute History Interval history: Pt resting in bed, No reported nursing events. Pt denies pain. Case management consulted for D/C planning. Pt medically optimized, discharge pending bed availability Hospitalist Physical - Constitutional Vitals: Temp Pulse Resp BP Pulse Ox 98.1 F 78 18 116/67 96 08/21/16 10:30 08/21/16 10:59 08/21/16 10:30 08/21/16 10:30 08/21/16 10:30 General appearance: Present: no acute distress - EENT Eyes: Present: PERRL - Neck Neck: Present: supple - Respiratory Respiratory: bilateral: diminished - Cardiovascular Rhythm: regular Heart Sounds: Present: S1 & S2 - Extremities Extremities: no ischemia Peripheral Pulses: within normal limits - Abdominal General gastrointestinal: soft, non-tender, non-distended - Integumentary Integumentary: Present: clear, dry - Psychiatric Psychiatric: cooperative - Neurologic Neurologic: no CNII-XII intact, focal deficits, no moves all extremities, no gait normal Results - Labs CBC & Chem 7: 08/14/16 21:27 08/14/16 21:27 Labs: Laboratory Last Values WBC 9.6 K/mm3 (4.5-11.0) 08/14/16 21:27 RBC 4.20 M/mm3 (3.65-5.03) 08/14/16 21:27 Hgb 12.3 gm/dl (10.1-14.3) 08/14/16 21:27 Hct 37.9 % (30.3-42.9) 08/14/16 21:27 MCV 90 fl (79-97) 08/14/16 21:27 MCH 29 pg (28-32) 08/14/16 21: MCHC 32 % (30-34) 08/14/16 21:27 RDW 14.3 % (13.2-15.2) 08/14/16 21:27 Plt Count 332 K/mm3 (140-440) 08/14/16 21:27 Lymph % (Auto) 25.5 % (13.4-35.0) 08/14/16 21:27 [place] % (Auto) 9.6 % (0.0-7.3) H 08/14/16 21:27 Eos % (Auto) 3.5 % (0.0-4.3) 08/14/16 21: Baso % (Auto) 0.6 % (0.0-1.8) 08/14/16 21: Lymph # 2.4 K/mm3 (1.2-5.4) 08/14/16 21:27 [place] # 0.9 K/mm3 (0.0-0.8) H 08/14/16 21:27 Eos # 0.3 K/mm3 (0.0-0.4) 08/14/16 21: Baso # 0.1 K/mm3 (0.0-0.1) 08/14/16 21: Seg Neutrophils % 60.8 % (40.0-70.0) 08/14/16 21: Seg Neutrophils # 5.8 K/mm3 (1.8-7.7) 08/14/16 21:27 Sodium 144 mmol/L (137-145) 08/14/16 21:27 Potassium 2.9 mmol/L (3.6-5.0) L* 08/14/16 21: Chloride 103.4 mmol/L (98-107) 08/14/16 21:27 Carbon Dioxide 24 mmol/L (22-30) 08/14/16 21: Anion Gap 20 mmol/L 08/14/16 21:27 BUN 13 mg/dL (7-17) 08/14/16 21:27 Creatinine 0.6 mg/dL (0.7-1.2) L 08/14/16 21:27 Estimated GFR > 60 ml/min 08/14/16 21:27 BUN/Creatinine Ratio 21.66 % 08/14/16 21:27 Glucose 96 mg/dL (65-100) 08/14/16 21:27 POC Glucose 91 (70-105) 08/20/16 22:33 Lactic Acid 1.0 mmol/L (0.7-2.0) 08/14/16 21:27 Calcium 9.6 mg/dL (8.4-10.2) 08/14/16 21:27 Total Bilirubin 0.2 mg/dL (0.1-1.2) 08/14/16 21:27 AST 15 units/L (5-40) 08/14/16 21:27 ALT 12 units/L (7-56) 08/14/16 21:27 Alkaline Phosphatase 113 units/L (35-129) 08/14/16 21:27 Total Creatine Kinase 33 units/L (30-135) 08/15/16 13:27 CK-MB (CK-2) < 1.0 ng/mL (0.0-4.0) 08/15/16 13:27 CK-MB (CK-2) Rel Index 3.0 (0-4) 08/15/16 13:27 Troponin T < 0.010 ng/mL (0.00-0.029) 08/15/16 13:27 Total Protein 7.2 g/dL (6.3-8.2) 08/14/16 21:27 Albumin 3.6 g/dL (3.9-5) L 08/14/16 21:27 Albumin/Globulin Ratio 1.0 % 08/14/16 21:27 Triglycerides 73 mg/dL (2-149) 08/16/16 04:00 Cholesterol 212 mg/dL (50-199) H 08/16/16 04:00 LDL Cholesterol Direct 157 mg/dL (50-130) H 08/16/16 04:00 HDL Cholesterol 41 mg/dL (40-59) 08/16/16 04:00 Cholesterol/HDL Ratio 5.17 % 08/16/16 04:00 Urine Color Yellow (Yellow) 08/14/16 22:57 Urine Turbidity Cloudy (Clear) 08/14/16 22:57 Urine pH 6.0 (5.0-7.0) 08/14/16 22:57 Ur Specific [place] 1.016 (1.003-1.030) 08/14/16 22:57 Urine Protein <15 mg/dl mg/dL (Negative) 08/14/16 22:57 Urine Glucose (UA) Neg mg/dL (Negative) 08/14/16 22:57 Urine Ketones Neg mg/dL (Negative) 08/14/16 22:57 Urine Blood Neg (Negative) 08/14/16 22:57 Urine Nitrite Neg (Negative) 08/14/16 22:57 Urine Bilirubin Neg (Negative) 08/14/16 22:57 Urine Urobilinogen < 2.0 mg/dL (<2.0) 08/14/16 22:57 Ur Leukocyte Esterase Neg (Negative) 08/14/16 22:57 Urine WBC (Auto) 1.0 /HPF (0.0-6.0) 08/14/16 22:57 Urine RBC (Auto) 21.0 /HPF (0.0-6.0) 08/14/16 22:57 U Epithel Cells (Auto) 2.0 /HPF (0-13.0) 08/14/16 22:57 Urine Bacteria (Auto) 1+ /HPF (Negative) 08/14/16 22:57 Urine Mucus 3+ /HPF 08/14/16 22:57
--- NOTE | 2016-08-21 17:05 | Discharge Summary ---
Providers - Providers Date of Admission: 08/15/16 03:46 Attending physician: DAWIT ROSENBAUM Primary care physician: THOMAS VIZCAINO MD Hospitalization Condition: Stable Disposition: STILL A PATIENT - Discharge Diagnoses (1) CVA (cerebral vascular accident) Status: Chronic Qualifiers: CVA mechanism: C Precerebral and cerebral artery: P Laterality of affected vessel: right (2) Left hemiparesis Status: Acute (3) Hypertension Status: Acute Qualifiers: Hypertension type: essential hypertension Qualified Code(s): I10 - Essential (primary) hypertension (4) Debility Status: Acute (5) DVT prophylaxis Status: Acute Exam - Constitutional Vitals: Temp Pulse Resp BP Pulse Ox 98.1 F 78 18 116/67 96 08/21/16 10:30 08/21/16 10:59 08/21/16 10:30 08/21/16 10:30 08/21/16 10:30 Plan Follow up with: THOMAS VIZCAINO MD [Primary Care Provider] - 3-5 Days
--- NOTE | 2016-08-21 18:23 | Progress Note ---
Assessment and Plan - Patient Problems (1) CVA (cerebral vascular accident) Current Visit: Yes Status: Chronic Qualifiers: CVA mechanism: C Precerebral and cerebral artery: P Laterality of affected vessel: right Plan to address problem: Stroke protocol, antiplatelet therapy, supportive care. case management consulted for d/c planning /placement (2) Left hemiparesis Current Visit: Yes Status: Acute (3) Hypertension Current Visit: Yes Status: Acute Qualifiers: Hypertension type: essential hypertension Qualified Code(s): I10 - Essential (primary) hypertension Plan to address problem: monitor bp q shift, continue current therapy (4) Debility Current Visit: Yes Status: Acute Plan to address problem: PT consulted, (5) DVT prophylaxis Current Visit: Yes Status: Acute History Interval history: Pt resting in bed, No reported nursing events. Pt denies pain. Case management consulted.. Pt discharged to SNF today, Medications reconciled. Hospitalist Physical - Constitutional Vitals: Temp Pulse Resp BP Pulse Ox 98.1 F 78 18 116/67 96 08/21/16 10:30 08/21/16 10:59 08/21/16 10:30 08/21/16 10:30 08/21/16 10:30 General appearance: Present: no acute distress - EENT Eyes: Present: PERRL ENT: hearing intact - Neck Neck: Present: supple - Respiratory Respiratory: bilateral: CTA - Cardiovascular Rhythm: regular Heart Sounds: Present: S1 & S2 - Extremities Extremities: no ischemia Peripheral Pulses: within normal limits - Abdominal General gastrointestinal: soft, non-tender, non-distended - Integumentary Integumentary: Present: clear, dry - Psychiatric Psychiatric: cooperative - Neurologic Neurologic: no CNII-XII intact, focal deficits, no moves all extremities, no gait normal Results - Labs CBC & Chem 7: 08/14/16 21:27 08/14/16 21:27 Labs: Laboratory Last Values WBC 9.6 K/mm3 (4.5-11.0) 08/14/16 21:27 RBC 4.20 M/mm3 (3.65-5.03) 08/14/16 21:27 Hgb 12.3 gm/dl (10.1-14.3) 08/14/16 21:27 Hct 37.9 % (30.3-42.9) 08/14/16 21:27 MCV 90 fl (79-97) 08/14/16 21:27 MCH 29 pg (28-32) 08/14/16 21: MCHC 32 % (30-34) 08/14/16 21: RDW 14.3 % (13.2-15.2) 08/14/16 21:27 Plt Count 332 K/mm3 (140-440) 08/14/16 21: Lymph % (Auto) 25.5 % (13.4-35.0) 08/14/16 21:27 [place] % (Auto) 9.6 % (0.0-7.3) H 08/14/16 21:27 Eos % (Auto) 3.5 % (0.0-4.3) 08/14/16 21: Baso % (Auto) 0.6 % (0.0-1.8) 08/14/16 21: Lymph # 2.4 K/mm3 (1.2-5.4) 08/14/16 21: [place] # 0.9 K/mm3 (0.0-0.8) H 08/14/16 21:27 Eos # 0.3 K/mm3 (0.0-0.4) 08/14/16 21: Baso # 0.1 K/mm3 (0.0-0.1) 08/14/16 21: Seg Neutrophils % 60.8 % (40.0-70.0) 08/14/16 21: Seg Neutrophils # 5.8 K/mm3 (1.8-7.7) 08/14/16 21:27 Sodium 144 mmol/L (137-145) 08/14/16 21:27 Potassium 2.9 mmol/L (3.6-5.0) L* 08/14/16 21: Chloride 103.4 mmol/L (98-107) 08/14/16 21: Carbon Dioxide 24 mmol/L (22-30) 08/14/16 21: Anion Gap 20 mmol/L 08/14/16 21:27 BUN 13 mg/dL (7-17) 08/14/16 21: Creatinine 0.6 mg/dL (0.7-1.2) L 08/14/16 21:27 Estimated GFR > 60 ml/min 08/14/16 21:27 BUN/Creatinine Ratio 21.66 % 08/14/16 21:27 Glucose 96 mg/dL (65-100) 08/14/16 21:27 POC Glucose 125 (70-105) H 08/21/16 17:14 Lactic Acid 1.0 mmol/L (0.7-2.0) 08/14/16 21:27 Calcium 9.6 mg/dL (8.4-10.2) 08/14/16 21:27 Total Bilirubin 0.2 mg/dL (0.1-1.2) 08/14/16 21:27 AST 15 units/L (5-40) 08/14/16 21:27 ALT 12 units/L (7-56) 08/14/16 21:27 Alkaline Phosphatase 113 units/L (35-129) 08/14/16 21:27 Total Creatine Kinase 33 units/L (30-135) 08/15/16 13:27 CK-MB (CK-2) < 1.0 ng/mL (0.0-4.0) 08/15/16 13:27 CK-MB (CK-2) Rel Index 3.0 (0-4) 08/15/16 13:27 Troponin T < 0.010 ng/mL (0.00-0.029) 08/15/16 13:27 Total Protein 7.2 g/dL (6.3-8.2) 08/14/16 21:27 Albumin 3.6 g/dL (3.9-5) L 08/14/16 21:27 Albumin/Globulin Ratio 1.0 % 08/14/16 21:27 Triglycerides 73 mg/dL (2-149) 08/16/16 04:00 Cholesterol 212 mg/dL (50-199) H 08/16/16 04:00 LDL Cholesterol Direct 157 mg/dL (50-130) H 08/16/16 04:00 HDL Cholesterol 41 mg/dL (40-59) 08/16/16 04:00 Cholesterol/HDL Ratio 5.17 % 08/16/16 04:00 Urine Color Yellow (Yellow) 08/14/16 22:57 Urine Turbidity Cloudy (Clear) 08/14/16 22:57 Urine pH 6.0 (5.0-7.0) 08/14/16 22:57 Ur Specific [place] 1.016 (1.003-1.030) 08/14/16 22:57 Urine Protein <15 mg/dl mg/dL (Negative) 08/14/16 22:57 Urine Glucose (UA) Neg mg/dL (Negative) 08/14/16 22:57 Urine Ketones Neg mg/dL (Negative) 08/14/16 22:57 Urine Blood Neg (Negative) 08/14/16 22:57 Urine Nitrite Neg (Negative) 08/14/16 22:57 Urine Bilirubin Neg (Negative) 08/14/16 22:57 Urine Urobilinogen < 2.0 mg/dL (<2.0) 08/14/16 22:57 Ur Leukocyte Esterase Neg (Negative) 08/14/16 22:57 Urine WBC (Auto) 1.0 /HPF (0.0-6.0) 08/14/16 22:57 Urine RBC (Auto) 21.0 /HPF (0.0-6.0) 08/14/16 22:57 U Epithel Cells (Auto) 2.0 /HPF (0-13.0) 08/14/16 22:57 Urine Bacteria (Auto) 1+ /HPF (Negative) 08/14/16 22:57 Urine Mucus 3+ /HPF 08/14/16 22:57
[2016-08-21] MEDS: TYLENOL PO PRN (20:29)
[2016-08-21] MEDS: ZOCOR PO SCH (23:18)
[2016-08-21] MEDS: SOMA PO SCH (23:18)
[2016-08-22] MEDS: TYLENOL PO PRN (00:26)
[2016-08-22] MEDS: APRESOLINE IV PRN (09:32)
[2016-08-22] MEDS: ASPIRIN PO SCH (10:33)
[2016-08-22] MEDS: LOVENOX SUB-Q SCH (10:33)
[2016-08-22] MEDS: FOLVITE PO SCH (10:34)
[2016-08-22] MEDS: COZAAR PO SCH (10:34)
[2016-08-22] MEDS: PLAVIX PO SCH (10:34)
[2016-08-22] MEDS: ZETIA PO SCH (10:34)
[2016-08-22] MEDS: VITAMIN B-12 PO SCH (10:34)
[2016-08-22] MEDS: TENORMIN PO SCH (10:35)
--- NOTE | 2016-08-22 11:15 | Discharge Summary ---
Providers - Providers Date of Admission: 08/15/16 03:46 Date of discharge: 08/22/16 Attending physician: MATTHEW HERNANDEZ MD Primary care physician: [employer] Hospitalization Condition: Stable Pertinent studies: MRI Hospital course: 66-year-old woman with a history of hypertension, GERD, recent CVA with left hemiparesis who was discharged from rehabilitation 2-3 weeks ago was brought to the emergency room by family because of slurred speech and he also stated that she was hallucinating. The patient was unable to do her ADLs at home since discharge from the [facility]. Patient was admitted to the floor and MRI was done, didn't show any new stroke , significant for old stroke. Patient's blood pressure was controlled, PT evaluated her. Patient was at her baseline at the time of discharge. Patient was discharged to SNF. Disposition: DC/TX SNF W [facility] CERT Time spent for discharge: 32 minutes - Discharge Diagnoses (1) Debility Status: Acute (2) Hypertension Status: Acute Qualifiers: Hypertension type: essential hypertension Qualified Code(s): I10 - Essential (primary) hypertension (3) Left hemiparesis Status: Acute (4) Left-sided weakness Status: Acute (5) CVA (cerebral vascular accident) Status: Chronic Qualifiers: CVA mechanism: C Precerebral and cerebral artery: P Laterality of affected vessel: right Core Measure Documentation - Palliative Care Palliative Care/ Comfort Measures: Not Applicable - Core Measures Any of the following diagnoses?: stroke - Stroke Discharge Requirements Statin for LDL = or >70 mg/dl on DC: Yes Anticoag for atrial fib/atrial flutter: Not Applicable Antithrombotic for ischemic stroke: Yes Exam - Physical Exam Narrative exam: Not in cardiopulmonary distress. The patient appeared well nourished and normally developed. Vital signs as documented. Head exam is unremarkable. No scleral icterus . Neck is without jugular venous distension, thyromegaly, or carotid bruits. Lungs are clear to auscultation. Cardiac exam reveals regular rate and Rhythm. First and second heart sounds normal. No murmurs, rubs or gallops. Abdominal exam reveals normal bowel sounds, no masses, no organomegaly and no aortic enlargement. [employer]: Left sided hemiparesis from previous stroke. Alert and oriented. - Constitutional Vitals: Temp Pulse Resp BP Pulse Ox 98.6 F 102 H 18 195/115 97 08/22/16 08:15 02/07/17 10:35 08/22/16 08:15 08/22/16 10:35 08/22/16 08:15 Plan Activity: fall precautions Weight Bearing Status: Non-Weight Bearing Diet: low cholesterol, low salt Follow up with: PRIMARY CARE,MD [Primary Care Provider] - 7 Days Prescriptions: Simvastatin [Zocor TAB] 20 mg PO QHS #30 tablet traMADol [Ultram 50 MG tab] 50 mg PO Q4HR PRN #30 tablet PRN Reason: Pain
[2016-08-22 14:07] VITALS: BP 106/61
== END 2016-08-22 16:30 | DRG 69 ==
LOC: ED 20:27 → 4A 08-15 03:46
PROVIDERS: ADMIT Internal Medicine; ATTEND Internal Medicine
DX: G45.9 Transient cerebral ischemic attack, unspecified (principal); G81.92 Hemiplegia, unspecified affecting left dominant side; R62.7 Adult failure to thrive; I10 Essential (primary) hypertension; K21.9 Gastro-esophageal reflux disease without esophagitis; R53.81 Other malaise; R47.81 Slurred speech; M19.90 Unspecified osteoarthritis, unspecified site; Z88.6 Allergy status to analgesic agent; Z79.899 Other long term (current) drug therapy; Z82.49 Family history of ischemic heart disease and other diseases of the circulatory system
CPT/HCPCS: 36415; 70450; 70551; 71010; 80053; 80061; 81001; 82140; 82550; 82553; 82962; 84484; 85025; 90732; 96372; 96374; G8978-GP; G8979-GP; G8987-GO; G8988-GO; G8989-GO; J0360; J1650